=== PATIENT | female | born 1970 | race Caucasian/White ===

== ENCOUNTER 2023-06-09 08:04 | Emergency (ER) | payer OTHER, MEDICAID, SELFPAY ==
[2023-06-09] VITALS (13 sets, daily range): BP systolic 122–159; BP diastolic 73–100; PULSE 90–105; RESP 15–32; TEMP 36.4; O2SAT 90–96; BMI 39.4
--- NOTE | 2023-06-09 08:11 | ED_ITS ---
HPI - SOB/Dyspnea General Chief Complaint: Shortness of Breath/Dyspnea Stated Complaint: needs breathing treatment Time Seen by Provider: 06/09/23 08:11 Source: patient and RN notes reviewed Mode of arrival: Ambulatory Limitations: no limitations History of Present Illness HPI Narrative: This is a 52-year-old female with history of asthma/chronic tobacco use with complaint of shortness of breath, fevers and difficulty breathing for the past 3 days. Patient states she is felt hot over the last several days with subjective fevers. She is had a cough with productive clear sputum. She is felt tight and wheezy in her chest. Patient states she is been using her albuterol inhaler, she normally uses it multiple times daily but then it stopped working this morning. She states no chest pain. She is sometimes post-tussive emesis but no vomiting otherwise. She started having little bit of diarrhea today. No black or bloody stools. She denies any swelling in her extremities. Patient states she did have an exposure to RSV recently. Patient states she does not use any other medications regularly besides her inhaler she states she was prescribed an oral antibiotic related to penicillin that is twice daily and a very large pill suspect either amoxicillin or Augmentin. Patient states she also completed a round of prednisone about a week ago. Her symptoms very similar to this. Patient states no other daily medications currently. Denies any prior surgeries. She states she does not tolerate narcotics well, she has several antibiotic allergies listed in her EMR. She quit using tobacco a week ago, rare alcohol, uses CBD gummies but no other recreational drugs. She had a tele visit with a Dr. Teetee Ward this morning. O2 is 90-91%, patient states she is never been told her oxygen runs low. Related Data Home Medications Medication Instructions Recorded Confirmed [CRANBERRY] ##0 07/17/16 multivitamin (Multiple Vitamins 1 tab PO QDAY ##0 07/17/16 tablet) Previous Rx's Medication Instructions Recorded metoprolol tartrate 50 mg tablet 50 mg PO Q12H 28 days #0 tabs 07/17/16 (Lopressor) prednisone 50 mg tablet 50 mg PO AMCC 5 days #0 tabs 11/22/16 promethazine 25 mg tablet 25 mg PO Q6HP PRN #5 tabs 11/22/16 promethazine 25 mg tablet 25 mg PO Q6HP PRN #10 tabs 12/22/16 lorazepam 1 mg tablet 1 mg PO Q8HP PRN #5 tabs 02/13/17 albuterol sulfate 90 mcg/actuation 1 inh inhalation QID PRN shortness 06/09/23 aerosol inhaler of breath or wheezing #8.5 grams beclomethasone dipropionate 80 1 inh inhalation Q12H #10.6 grams 06/09/23 mcg/actuation HFA breath activated aerosol (Qvar RediHaler) benzonatate 100 mg capsule 100 mg PO TID PRN cough #10 caps 06/09/23 prednisone 10 mg tablets in a dose See Rx Instructions PO .COMPLEX 06/09/23 pack #21 ea Allergies Allergy/AdvReac Type Severity Reaction Status Date / Time aspirin [ASPIRIN] Allergy Intermediate Unverified 12/04/17 12:39 codeine [CODEINE] Allergy Intermediate Unverified 12/04/17 12:39 Penicillins [PENICILLINS] Allergy Intermediate Unverified 12/04/17 12:39 Sulfa (Sulfonamide Allergy Intermediate Unverified 12/04/17 12:39 Antibiotics) [SULFA (SULFONAMIDE ANTIBIOTICS)] diphenhydramine Allergy Unknown HIVES Unverified 12/04/17 12:39 [DIPHENHYDRAMINE] lidocaine [LIDOCAINE] AdvReac Unknown VOMITING Unverified 06/09/23 08:21 morphine [MORPHINE] AdvReac Unknown ITCHING Unverified 06/09/23 08:21 ondansetron AdvReac Unknown HEADACHE/NA Unverified 06/09/23 08:21 [From ZOFRAN ( USEA HYDROCHLORIDE)] Review of Systems Review of Systems ROS Unobtainable: All systems reviewed & are unremarkable except as noted in HPI and below Patient History Social History Smoking Status: Former smoker Exam Narrative Exam Narrative: GEN: well nourished, well appearing female, alert and oriented x 3, patient appears to be in mild distress. HEENT: Atraumatic, pupils are equal round reactive to light, extraocular movements are intact, nares very mild nasal congestion, there is no conjunctival pallor. Throat is clear without any exudates, erythema, tonsillar enlargement or uvular deviation, mild hoarseness. No stridor. Speaks in full sentences. HEART: Slightly tachycardic but regular rate and rhythm without murmur, clicks, rubs. No carotid bruits, pulses are equal in upper and lower extremities. No edema bilateral lower extremities. LUNGS:Lungs bilateral wheezes inspiratory and expiratory in the bases, no rales or crackles, chest moves symmetrically, no tachypnea accessory muscle use. Patient ambulated in to the room without issue. Patient does have persistent cough. ABD:bowel sounds normal, soft, non-tender, no guarding, rebound, rigidity, no masses noted, no hepatosplenomegaly :No CVA tenderness MSCL: Non-tender, no muscle atrophy, muscles strength 5/5 upper and lower extremities, full range of motion, normal gait NEURO:CN 2-12 intact, sensation normal. SKIN: No rash, erythema or other skin changes. Initial Vital Signs Initial Vital Signs: Vital Signs Blood Pressure 159/100 H 06/09/23 08:09 Course Orders Ordered: ED Orders 06/09/23 08:19 Respiratory Panel (Film Array) Stat 06/09/23 08:20 XR chest 1V Stat 06/09/23 08:27 Complete Blood Count AUTO DIFF Stat Comprehensive Metabolic Panel Stat Lipase Stat NT-proBNP (BNP-Adult 18+) Stat PTT Partial Thromboplastin Dejan Stat Prothrombin Time INR Stat Troponin & CK Cardiac Panel Stat 06/09/23 09:26 EKG-12 Lead Stat Discontinued Medications Albuterol/Ipratropium (Albuterol/Ipratropium 3 Ml Ampul) 6 ml INH NOW ONE Stop: 06/09/23 08:19 Last Admin: 06/09/23 08:23 Dose: 6 ml Documented By: RABIA Methylprednisolone (Methylprednisolone 125 Mg/2 Ml Vial) 125 mg IV NOW ONE Stop: 06/09/23 08:20 Last Admin: 06/09/23 09:00 Dose: 125 mg Documented By: KB Vital Signs Vital signs: Vital Signs - 8 hr 06/09/23 08:09 06/09/23 08:10 06/09/23 08:12 Temperature 97.6 F Pulse Rate 104 H 105 H Respiratory Rate 24 Blood Pressure 159/100 H 159/100 H Pulse Oximetry 91 90 L Oxygen Delivery Method Room Air 06/09/23 08:23 06/09/23 08:27 06/09/23 08:27 Temperature Pulse Rate 94 H 103 H Respiratory Rate 20 22 Blood Pressure 133/94 H Pulse Oximetry 90 L 91 Oxygen Delivery Method Room Air 06/09/23 08:30 06/09/23 08:31 06/09/23 08:31 Temperature Pulse Rate 100 H 98 H Respiratory Rate 15 16 Blood Pressure 140/88 Pulse Oximetry 96 95 Oxygen Delivery Method 06/09/23 08:40 06/09/23 08:40 06/09/23 08:50 Temperature Pulse Rate 99 H 98 H Respiratory Rate 23 26 H Blood Pressure 127/87 Pulse Oximetry 95 91 Oxygen Delivery Method 06/09/23 08:50 06/09/23 09:00 06/09/23 09:00 Temperature Pulse Rate 96 H Respiratory Rate 20 Blood Pressure 122/73 142/86 H Pulse Oximetry 91 Oxygen Delivery Method 06/09/23 09:10 06/09/23 09:10 06/09/23 09:30 Temperature Pulse Rate 93 H 92 H Respiratory Rate 32 H 25 H Blood Pressure 137/88 Pulse Oximetry 90 L 93 Oxygen Delivery Method 06/09/23 10:00 Temperature Pulse Rate 90 Respiratory Rate 23 Blood Pressure 138/78 Pulse Oximetry 92 Oxygen Delivery Method MDM - SOB/Dyspnea Lab Data 06/09/23 08:27 06/09/23 08:27 Labs: Lab Results 06/09/23 06/09/23 06/09/23 Range/Units 08:19 08:27 08:27 WBC 15.7 H (4.5-11.0) X10^3/uL RBC 5.01 (4.0-5.2) X10^6/uL Hgb 15.2 (12.0-16.0) g/dL Hct 43.8 (36-46) % MCV 87.4 (80-100) fL MCH 30.3 (26-34) PG MCHC 34.6 (30-36) % RDW 13.3 (11.6-14.8) % Plt Count 242 (150-400) X10^3/uL Neut % (Auto) 84.6 H (50-75) % Lymph % (Auto) 8.8 L (25-40) % Hardin % (Auto) 5.7 (3-14) % Eos % (Auto) 0.5 L (2-4) % Baso % (Auto) 0.4 (0-2) % Neut # (Auto) 83814 H (2836-8998) /uL Lymph # (Auto) 1400 (9179-6542) /uL Hardin # (Auto) 900 (0-900) /uL Eos # (Auto) 100 (0-450) /uL Baso # (Auto) 100 (0-100) /uL PT 17.5 H (10.1-12.7) SECONDS INR 1.5 H (0.9-1.3) APTT 29 (26-36) SECONDS Sodium 137 (137-145) mmol/L Potassium 3.3 L (3.4-5.1) mmol/L Chloride 101 (98-107) mmol/L Carbon Dioxide 27 (22-32) mmol/L BUN 11 (7-17) mg/dL Creatinine 0.82 (0.52-1.04) mg/dL Estimated GFR > 60 (>60) mL/min BUN/Creatinine Ratio 13.4 (6-22) Glucose 110 H (70-100) mg/dL Calcium 9.5 (8.4-10.2) mg/dL Total Bilirubin 2.4 H (0.2-1.3) mg/dL AST 37 H (14-36) IU/L ALT 52 H (<35) IU/L Alkaline Phosphatase 78 (38-126) U/L Total Creatine Kinase 167 H (30-135) U/L Troponin I 0.013 (0.01-0.034) ng/mL NT-Pro-B Natriuret Pep 38 Cancelled (<125) pg/mL Total Protein 7.0 (6.3-8.2) g/dL Albumin 4.0 (3.5-5.0) g/dL Globulin 3.0 (1.7-4.1) g/dL Albumin/Globulin Ratio 1.3 (1.0-2.8) Lipase 83 (23-300) U/L Chlamy pneumoniae PCR Not detected (Not Detect) Adenovirus (PCR) Not detected (Not Detect) B.parapertussis DNA PCR Not detected (Not Detecte) Coronavirus OC43 (PCR) Not detected (Not Detect) Coronavirus HKU1 (PCR) Not detected (Not Detect) Coronavirus 229E (PCR) Not detected (Not Detect) SARS-CoV-2 (PCR) Not detected (Not Detecte) Coronavirus NL63 (PCR) Not detected (Not Detect) Human Metapneumovir PCR Not detected (Not Detect) Influenza Type A (PCR) Not detected (Not Detect) Influenza Type B (PCR) Not detected (Not Detect) M. pneumoniae (PCR) Not detected (Not Detect) Parainfluenza 1 (PCR) Not detected (Not Detect) Parainfluenza 2 (PCR) Not detected (Not Detect) Parainfluenza 3 (PCR) Not detected (Not Detect) Parainfluenza 4 (PCR) Not detected (Not Detect) RSV (PCR) Not detected (Not Detect) Entero/Rhino (PCR) Detected (Not Detect) Imaging Data Chest x-ray: Radiologist's Impression: [address] [address] XRay Report Signed Patient: Raad Castillo MR#: [id number] : 1970 Acct:[id number] Age/Sex: 52 / F Date of Service: 06/09/23 Loc: ED Accession Number: [id number] Procedure: XR chest 1V Ordering Provider: Bette Oviedo D.O. PROCEDURE: XR CHEST 1V INDICATIONS: Short of breath/fevers/cough, asthma hx TECHNIQUE: One view of the chest was acquired. COMPARISON: [facility] , CHEST 1 VIEW, 07/17/2016, 9:27. FINDINGS: Surgical changes and devices: None. Lungs and pleura: An incomplete inspiratory result is noted, causing a crowded appearance to the lung markings. No focal infiltrates are seen. No pneumothorax or significant pleural effusions are seen. Mediastinum: The cardiac contours are within normal limits. The aorta demonstrates tortuosity. Bones and chest wall: No suspicious bony lesions. Overlying soft tissues appear unremarkable. IMPRESSION: Lung volumes, without an acute abnormality seen by plain film. Dictated by: Jn Li M.D. on 06/09/2023 at 8:14 Approved by: Jn Li M.D. on 06/09/2023 at 8:15 ECG Data Attestation: I personally reviewed and interpreted this ECG as follows: Prior ECG tracings: available for review Interpretation: Sinus rhythm rate 88 IA 128 QRS of 100 QTC of 459. No acute ST elevation depression likely some motion artifact in V1. Patient has no acute changes on EKGs from prior. Patient prior EKGs in cardioserver but patient is confidential. MDM Narrative Medical decision making narrative: This is a 52-year-old female with history of chronic tobacco abuse/asthma he uses an inhaler regularly daily. Patient had a recent what sounds like upper respiratory infection was on oral antibiotic likely Augmentin or amoxicillin and prednisone which she completed a week ago. She since then has had exposure to RSV and has developed fevers, increasing cough and wheezing and tightness in her chest. Her inhaler was helpful when she was using it but did not work today. She is 90-91% on room air slightly tachycardic at 1:05 a.m., has wheezes on exam with nasal congestion and hoarseness consistent with upper respiratory infection likely exacerbating COPD/asthma. Patient was given DuoNeb, Solu-Medrol, re- evaluated labs, chest x-ray and respiratory panel were obtained. pre peak flow is 200. post peak flow is 280. Lungs on repeat exam are clear. Patient is still feels a little tight but states she feels much better in the bases. Chest x-ray shows some possible change on the right although incomplete inspiratory result. No other acute abnormality is noted. Patient does have a leukocytosis this could be secondary to recent prednisone usage, leftward shift, coags show INR 1.5, chemistries show potassium of 3.3 glucose of 110, bilirubin 2.4 with AST ALT of 03/24/2052, creatinine kinase is 167- troponin and BNP is negative. Patient is RSV positive. Recheck and patient lungs are clear. Patient had a dip down to 89% intermittently but not persistently and is 93-94% on room air. Can speak in full sentences. Patient appears improved she states she feels improved. Reviewed all of her findings. Discussed she uses her albuterol every day, discussed sending her inhaled steroid as well. oxygen has improved to 94% on RA after duoneb x 2. Patient and I discussed likely exacerbation of her asthma/COPD secondary to RSV infection. We will continue with steroids, refill for albuterol which appears to have run out or is not working. We will hold off on oral antibiotics at this point. Discussed return precautions all questions answered. Discharge Plan Departure Patient Disposition: Home Clinical Impression: RSV bronchitis Instructions: DI for Respiratory Syncytial Virus -- Adults Activity Restrictions/Additional Instructions: Follow-up for recheck with your physician. You did test positive for RSV today. Take steroids until completed. I would recommend using a steroid inhaler, 1 puff twice daily whether you feel good or bad or have symptoms. Use a spacer with your inhaler. You can use 2-4 puffs every 4 hours as needed for wheezing or shortness of breath. You may take up medication as prescribed. Prescription sent to [facility]. Please return for rapidly worsening symptoms increasing chest pain or shortness of breath passing out, new swelling in her extremities, vomiting or other new or concerning changes. Prescriptions: New albuterol sulfate 90 mcg/actuation HFA aerosol inhaler 1 inh inhalation QID PRN (Reason: shortness of breath or wheezing) Qty: 8.5 0RF Qvar RediHaler 80 mcg/actuation HFA aerosol breath activated 1 inh inhalation Q12H Qty: 10.6 0RF benzonatate 100 mg capsule 100 mg PO TID PRN (Reason: cough) Qty: 10 0RF prednisone 10 mg tablets,dose pack See Rx Instructions .ROUTE .COMPLEX Qty: 21 0RF Rx Instructions: Take 6 tablets p.o. x1 day, then 5 tablets p.o. x1 day, then 4 tablets p.o. x1 day, then 3 tablets p.o. x1 day, then 2 tablets p.o. x1 day, then 1 tablet p.o. x1 day No Action multivitamin [Multiple Vitamins] 1 EACH tablet 1 tab PO QDAY Qty: 0 [CRANBERRY] Qty: 0 metoprolol tartrate [Lopressor] 50 MG tablet 50 mg PO Q12H 28 Days Qty: 0 0RF prednisone 50 MG tablet 50 mg PO AMCC 5 Days Qty: 0 0RF promethazine 25 MG tablet 25 mg PO Q6HP PRNQty: 5 0RF promethazine 25 MG tablet 25 mg PO Q6HP PRNQty: 10 0RF lorazepam 1 MG tablet 1 mg PO Q8HP PRNQty: 5 0RF Referrals: Miscellaneous,Doctor, MD [Primary Care Provider] - Stand Alone Forms: Patient Portal/API, Work Release Note
--- NOTE | 2023-06-09 08:20 | DI.RAD.S_ITS ---
PROCEDURE: XR CHEST 1V INDICATIONS: Short of breath/fevers/cough, asthma hx TECHNIQUE: One view of the chest was acquired. COMPARISON: [facility], , CHEST 1 VIEW, 07/17/2016, 9:27. FINDINGS: Surgical changes and devices: None. Lungs and pleura: An incomplete inspiratory result is noted, causing a crowded appearance to the lung markings. No focal infiltrates are seen. No pneumothorax or significant pleural effusions are seen. Mediastinum: The cardiac contours are within normal limits. The aorta demonstrates tortuosity. Bones and chest wall: No suspicious bony lesions. Overlying soft tissues appear unremarkable. IMPRESSION: Lung volumes, without an acute abnormality seen by plain film. Dictated by: Jn Li M.D. on 06/09/2023 at 8:14 Approved by: Jn Li M.D. on 06/09/2023 at 8:15
[2023-06-09] MEDS: ALBUTEROL/IPRATROPIUM 3 ML AMPUL 6 ML INH (08:23)
[2023-06-09 08:37] LABS: Eosinophils Absolute Auto 100 /uL (0-450); Eosinophils Percent Auto 0.5 % (2-4)
[2023-06-09 08:41] LABS: Add Manual Diff / Slide Review NO; Basophils Absolute Auto 100 /uL (0-100); Basophils Percent Auto 0.4 % (0-2); Hematocrit 43.8 % (36-46); Hemoglobin 15.2 g/dL (12.0-16.0); Lymphocytes Absolute Auto 1400 /uL (1100-4500); Lymphocytes Percent Auto 8.8 % (25-40); Mean Corpuscular HGB Conc 34.6 % (30-36); Mean Corpuscular Hemoglobin 30.3 PG (26-34); Mean Corpuscular Volume 87.4 fL (80-100); Monocytes Absolute Auto 900 /uL (0-900); Monocytes Percent Auto 5.7 % (3-14); Neutrophils Absolute Auto 13300 /uL (1500-7000); Neutrophils Percent Auto 84.6 % (50-75); Platelet Count 242 X10^3/uL (150-400); Red Blood Cell Count 5.01 X10^6/uL (4.0-5.2); Red Cell Distribution Width 13.3 % (11.6-14.8); White Blood Cell Count 15.7 X10^3/uL (4.5-11.0)
[2023-06-09 08:42] LABS: INR 1.5 (0.9-1.3); Prothrombin Time 17.5 SECONDS (10.1-12.7)
[2023-06-09 08:44] LABS: PTT Partial Thromboplastin Tim 29 SECONDS (26-36)
[2023-06-09 08:48] LABS: Alanine Aminotransferase 52 IU/L (<35); Albumin Globulin Ratio 1.3 (1.0-2.8); Alkaline Phosphatase 78 U/L (38-126); Aspartate Aminotransferase 37 IU/L (14-36); BUN Creatinine Ratio 13.4 (6-22); Bilirubin Total 2.4 mg/dL (0.2-1.3); Blood Urea Nitrogen 11 mg/dL (7-17); Calcium 9.5 mg/dL (8.4-10.2); Carbon Dioxide 27 mmol/L (22-32); Chloride 101 mmol/L (98-107); Creatine Kinase 167 U/L (30-135); Estimated Glomerular Filt Rate > 60 mL/min (>60); Glucose 110 mg/dL (70-100); HEMOLYSIS 42 (0-50); Lipase 83 U/L (23-300); Potassium 3.3 mmol/L (3.4-5.1); Sodium 137 mmol/L (137-145)
[2023-06-09] MEDS: methylPREDNISolone 125 MG/2 ML VIAL IV (09:00)
[2023-06-09 09:02] LABS: Troponin I 0.013 ng/mL (0.01-0.034)
[2023-06-09 09:04] LABS: NT-proBNP (BNP-Adult 18+) 38 pg/mL (<125)
--- NOTE | 2023-06-09 09:08 | RT ---
pt [place] neb tx well, no distress noted and sao2 95% room air.
[2023-06-09 09:24] LABS: Adenovirus Not Detected (Not Detect); B. parapertussis Not Detected (Not Detecte); Bordetella pertussis Not Detected (Not Detect); Chlamydophila pneumoniae Not Detected (Not Detect); Coronavirus 229E Not Detected (Not Detect); Coronavirus HKU1 Not Detected (Not Detect); Coronavirus NL 63 Not Detected (Not Detect); Coronavirus OC43 Not Detected (Not Detect); Human Metapneumovirus Not Detected (Not Detect); Human Rhinovirus/Enterovirus Detected (Not Detect); Influenza A Not Detected (Not Detect); Influenza B Not Detected (Not Detect); Mycoplasma pneumoniae Not Detected (Not Detect); Parainfluenza Virus 1 Not Detected (Not Detect); Parainfluenza Virus 2 Not Detected (Not Detect); Parainfluenza Virus 3 Not Detected (Not Detect); Parainfluenza Virus 4 Not Detected (Not Detect); Respiratory Syncytial Virus Not Detected (Not Detect); SARS- CoV-2 Not Detected (Not Detecte)
--- NOTE | 2023-06-09 14:15 | PC.NURSE ---
Notice for pre authorization regafing qvar inhaler from pharmacy. Called pharmacy, Dr. Oviedo ordered change to fluconisone inh bid.
== END 2023-06-09 10:15 | disposition home or self-care (01) ==
PROVIDERS: Emergency Provider Emergency Medicine
DX: J20.5 Acute bronchitis due to respiratory syncytial virus (principal); Z20.822 Contact with and (suspected) exposure to COVID-19
CPT/HCPCS: 36415; 71045; 80053; 82550; 83690; 83880; 84484; 85025; 85610; 85730; 87633; 93005; 93010; 94150; 94640; 96374; 99284; J2930